=== PATIENT | female | born 1945 | race Caucasian/White ===

== ENCOUNTER 2024-09-08 20:20 | Emergency (ER) | payer MEDICAID ==
[~2024-09-08] VITALS: Ht 152.4 cm; Wt 59.1 kg
[~2024-09-08 20:20] MED LIST: AMOX1TAB16 PO; CHOL400D7 MT; ENAL-77 PO; FAMO20TA8 MT; LANTUSUD SUBCUT; METF-416 PO; METR-167 MT; TAMS-54 PO; TRAM50TA3 MT
[2024-09-08 20:28] VITALS: O2SAT 97
[2024-09-08] MEDS: ACETAMINOPHEN 1000MG/100ML 100 ML IV ONE (22:30)
[2024-09-08] MEDS: ONDANSETRON HCL 4MG/2ML INJ IV ONE (22:30)
[2024-09-08] MEDS: SODIUM CHLORIDE 0.9% 1,000 ML IV ONE (22:30)
[2024-09-09 00:14] VITALS: TEMP 36.7
[2024-09-09 00:37] LABS: HEMATOCRIT. 34.9 % (36.0-48.0); HEMOGLOBIN. 11.7 g/dL (12.0-16.0); MEAN CORPUSCULAR HEMOGLOBIN 29.8 pg (28.0-32.0); MEAN CORPUSCULAR HGB CONC 33.6 g/dL (31.0-37.0); MEAN CORPUSCULAR VOLUME 88.8 fL (81.0-99.0); MEAN PLATELET VOLUME 8.8 fl (7.4-10.4); PLATELET 237 x1000/uL (130-400); RED BLOOD CELL COUNT 3.94 mill/uL (4.2-5.4); RED CELL DISTRIBUTION WIDTH 14.1 % (11.6-14.6)
[2024-09-09 00:43] LABS: DIFFERENTIAL COMMENT 1
[2024-09-09 00:47] LABS: CHLORIDE 100 mEq/L (98-107); POTASSIUM 4.7 mEq/L (3.5-5.1); SODIUM 131 mEq/L (136-145)
[2024-09-09 00:48] LABS: CALCIUM 9.3 mg/dL (8.7-10.4); CARBON DIOXIDE 22 mEq/L (21-32)
[2024-09-09 00:53] LABS: CREATININE 1.1 mg/dL (0.6-1.0); GLUCOSE 222 mg/dL (70-105); UREA NITROGEN BLOOD 25 mg/dL (9-23)
[2024-09-09 00:55] LABS: ALANINE AMINOTRANSFERASE 16 IU/L (10-49); ALBUMIN 4.3 g/dL (3.2-4.8); ASPARTATE AMINOTRANSFERASE 13 IU/L (<34); BILIRUBIN DIRECT 0.2 mg/dL (<=3.0)
[2024-09-09 00:56] LABS: BILIRUBIN TOTAL 0.6 mg/dL (0.1-1.0); PROTEIN TOTAL 7.6 g/dL (6.0-8.3)
[2024-09-09 01:12] LABS: INR 0.9; PROTHROMBIN TIME 10.2 sec (9.6-11.0)
[2024-09-09] MEDS ORDERED: ONDA4TAB50 MT (02:29)
[2024-09-09] MEDS ORDERED: ACET-2708 MT (02:29)
[2024-09-09 02:55] VITALS: BP 109/67; PULSE 71; RESP 18; O2SAT 98
[2024-09-09 03:29] LABS: PLATELET ESTIMATE NORMAL
== END 2024-09-09 02:59 | disposition home or self-care (01) ==
LOC: ER 20:20
DX: K52.9 Noninfective gastroenteritis and colitis, unspecified (principal); I10 Essential (primary) hypertension; E11.9 Type 2 diabetes mellitus without complications; Z79.84 Long term (current) use of oral hypoglycemic drugs; Z79.899 Other long term (current) drug therapy; Z85.038 Personal history of other malignant neoplasm of large intestine
CPT/HCPCS: 99285; 96365; 96375; 80076; 80048; 83690; 85025; 85610; 36415; 74176; J7030; J0131